=== PATIENT | female | born 1930 | race Caucasian/White ===

== ENCOUNTER 2017-01-20 17:12 | Observation (INO) | payer MEDICARE, MEDICAID ==
--- NOTE | 2017-01-20 19:01 | ER Document Report ---
ED General - General Chief Complaint: Other Stated Complaint: SOCIAL CONCERN Time Seen by Provider: 01/20/17 18:42 Notes: The patient is an 86-year-old female, past medical history dementia, hypertension, presents by EMS after her family locked her out of her house. She was supposed to move to [place] this week, but the patient said that her ride change their mind. She lives with her daughter, who locked her out of the house. Patient already has a social security assessor. Patient denies any complaints at this time other than she feels hungry. TRAVEL OUTSIDE OF THE [place] IN LAST 30 DAYS: No Past Medical History - General Information source: Patient, Emergency Med Personnel - Social History Smoking Status: Never Smoker Family History: Reviewed & Not Pertinent - Past Medical History Cardiac Medical History: Reports: Hx Hypertension Review of Systems - Review of Systems Notes: REVIEW OF SYSTEMS: CONSTITUTIONAL: -fevers, -chills EENT: -eye pain, -difficulty swallowing, -nasal congestion CARDIOVASCULAR:-chest pain, -syncope. RESPIRATORY: -cough, -SOB GASTROINTESTINAL: -abdominal pain, - nausea, -vomiting, -diarrhea GENITOURINARY: -dysuria, -hematuria MUSCULOSKELETAL: -back pain, -neck pain SKIN: -rash or skin lesions. HEMATOLOGIC: -easy bruising or bleeding. LYMPHATIC: -swollen, enlarged glands. NEUROLOGICAL: -altered mental status or loss of consciousness, -headache, - neurologic symptoms PSYCHIATRIC: -anxiety, -depression. ALL OTHER SYSTEMS REVIEWED AND NEGATIVE. Physical Exam - Notes Notes: PHYSICAL EXAMINATION: GENERAL: Well-appearing, well-nourished and in no acute distress. AAOx4. HEAD: Atraumatic, normocephalic. EYES: Pupils equal round and reactive to light, extraocular movements intact, sclera anicteric, conjunctiva are normal. ENT: nares patent, oropharynx clear without exudates. Moist mucous membranes. NECK: Normal range of motion, supple without lymphadenopathy LUNGS: Breath sounds clear to auscultation bilaterally and equal. No wheezes rales or rhonchi. HEART: Regular rate and rhythm without murmurs ABDOMEN: Soft, nontender, normoactive bowel sounds. No guarding, no rebound. No masses appreciated. EXTREMITIES: Normal range of motion, no pitting or edema. No cyanosis. NEUROLOGICAL: Cranial nerves grossly intact. Normal speech, normal gait. Normal sensory and motor exams. PSYCH: Normal mood, normal affect. SKIN: Warm, Dry, normal turgor, no rashes or lesions noted. Course - Re-evaluation Re-evalutation: 01/20/17 18:58 Pt appears well and has no complaints at this time. Blood work and UA did not show any emergent abnormalities. carpenter mate, Tania Rosas, called [employer] ([facility]) and filed a report. Delbert Redd, supply chain planner, is aware of the patient and will help create an appropriate disposition for the patient tomorrow. Her social security assessor is Irineo Ramirez ([phone] ). Will feed the patient and watch her overnight. Discharge - Discharge Clinical Impression: Social problem Condition: Stable Additional Instructions: NORMAL EXAM AND WORKUP: At this time, your examination and workup show no significant abnormality. No significant abnormal physical findings were noted. All laboratory, EKG, and imaging (x-ray, CT scans, ultrasound) studies that were ordered show no significant abnormality. Although your examination and all studies that were ordered showed no significant abnormal finding, there are no examinations and no studies that are 100% accurate. There is always the possibility that some abnormality could exist and not be detected with physical examination or within the limits and capabilities of laboratory and other studies. You should return or follow up as you were instructed on your visit today for further evaluation if your symptoms do not resolve.
[2017-01-20 20:06] LABS: ABSOLUTE LYMPHOCYTES (AUTO) 0.7 10^3/uL (0.5-4.7); ABSOLUTE MONOCYTES (AUTO) 0.7 10^3/uL (0.1-1.4); ABSOLUTE NEUT (AUTO) 7.3 10^3/uL (1.7-8.2); BASOPHILS % (AUTO) 0.4 % (0-2); HEMATOCRIT 36.5 % (36.0-47.0); HEMOGLOBIN 12.7 g/dL (12.0-15.5); HGB HCT DIFFERENCE 1.6; LYMPHOCYTES % (AUTO) 8.5 % (13-45); MEAN CORPUSCULAR HEMOGLOBIN 30.2 pg (27.0-33.4); MEAN CORPUSCULAR HGB CONC 34.7 g/dL (32.0-36.0); MEAN CORPUSCULAR VOLUME 87 fl (80-97); MONOCYTES % (AUTO) 8.3 % (3-13); RED CELL DISTRIBUTION WIDTH 14.4 % (11.5-14.0); SEGMENTED NEUTROPHILS % (AUTO) 82.8 % (42-78); WHITE BLOOD COUNT 8.9 10^3/uL (4.0-10.5)
[2017-01-20 20:20] LABS: ALANINE AMINOTRANSFERASE 24 U/L (9-52); ALKALINE PHOSPHATASE 77 U/L (38-126); ANION GAP 12 (5-19); ASPARTATE AMINO TRANSFERASE 21 U/L (14-36); BILIRUBIN,DIRECT 0.3 mg/dL (0.0-0.4); BILIRUBIN,TOTAL 0.4 mg/dL (0.2-1.3); BLOOD UREA NITROGEN 38 mg/dL (7-20); CALCIUM 9.1 mg/dL (8.4-10.2); CARBON DIOXIDE 20 mmol/L (22-30); CHLORIDE 110 mmol/L (98-107); CREATININE RESULT 1.42 mg/dL (0.52-1.25); GLUCOSE 92 mg/dL (75-110); POTASSIUM 4.5 mmol/L (3.6-5.0); SODIUM 141.6 mmol/L (137-145); TOTAL PROTEIN 6.4 g/dL (6.3-8.2)
[2017-01-21 13:07] LABS: APPEARANCE,URINE SLIGHTLY-CLOUDY; BILIRUBIN,URINE NEGATIVE (NEGATIVE); GLUCOSE, URINE NEGATIVE (NEGATIVE); KETONES,URINE NEGATIVE (NEGATIVE); LEUKOCYTE ESTERASE,URINE LARGE (NEGATIVE); NITRITE,URINE NEGATIVE (NEGATIVE); PROTEIN,URINE NEGATIVE (NEGATIVE); UROBILINOGEN,URINE NEGATIVE mg/dL (<2.0)
[2017-01-21] MEDS ORDERED: CEPHALEXIN 500 MG CAPSULE PO SCH (23:15)
--- NOTE | 2017-01-22 09:27 | ER Document Report ---
ED General - General Chief Complaint: Other Stated Complaint: SOCIAL CONCERN Time Seen by Provider: 01/20/17 18:42 TRAVEL OUTSIDE OF THE [place] IN LAST 30 DAYS: No - Related Data Allergies/Adverse Reactions: No Known Allergies Allergy (Unverified 01/20/17 18:58) Home Medications: Current Home Medications Cholestyramine (with Sugar) [Cholestyramine Packet] 1 pkg PO BID 01/21/17 [ History] Lisinopril [Lisinopril] 20 mg PO DAILY 01/21/17 [History] Past Medical History - General Information source: Patient, Emergency Med Personnel - Social History Smoking Status: Never Smoker Family History: Reviewed & Not Pertinent - Past Medical History Cardiac Medical History: Reports: Hx Hypertension Physical Exam - Vital signs Vitals: Pulse BP Pulse Ox 85 95/44 L 98 01/20/17 17:43 01/20/17 17:43 01/20/17 17:43 Course - Re-evaluation Re-evalutation: 01/22/17 09:27 [facility] I examined this patient. I reviewed the patient's chart. The patient is currently resting comfortably and requires no acute medical intervention. Disposition per psychiatry. - Vital Signs Vital signs: Temp Pulse Resp BP Pulse Ox 97.6 F 88 18 132/64 H 95 01/22/17 07:57 01/22/17 07:57 01/22/17 07:57 01/22/17 07:57 01/22/17 07:57 - Laboratory Result Diagrams: 01/20/17 19:55 01/20/17 19:55 Laboratory results interpreted by me: 01/20/17 01/20/17 01/21/17 19:55 19:55 11:10 RDW 14.4 H Seg Neutrophils % 82.8 H Lymphocytes % 8.5 L Chloride 110 H Carbon Dioxide 20 L BUN 38 H Creatinine 1.42 H Est GFR ( Amer) 42 L Est GFR (Non-Af Amer) 35 L Urine Blood SMALL H Ur Leukocyte Esterase LARGE H Discharge - Discharge Clinical Impression: Social problem Condition: Stable Additional Instructions: NORMAL EXAM AND WORKUP: At this time, your examination and workup show no significant abnormality. No significant abnormal physical findings were noted. All laboratory, EKG, and imaging (x-ray, CT scans, ultrasound) studies that were ordered show no significant abnormality. Although your examination and all studies that were ordered showed no significant abnormal finding, there are no examinations and no studies that are 100% accurate. There is always the possibility that some abnormality could exist and not be detected with physical examination or within the limits and capabilities of laboratory and other studies. You should return or follow up as you were instructed on your visit today for further evaluation if your symptoms do not resolve. Referrals: NATALIE LALA MD [Primary Care Provider] - Follow up as needed
[2017-01-22] MEDS: CEPHALEXIN 500 MG CAPSULE PO SCH ×2 (13:49→18:16)
[2017-01-23] MEDS: CEPHALEXIN 500 MG CAPSULE PO SCH ×3 (06:00→21:53)
--- NOTE | 2017-01-23 16:52 | ER Document Report ---
Doctor's Note Notes: 01/23/17 16:52 Patient was an unfortunate social situation. There may be options for a memory care unit. Patient will need to be evaluated and diagnosed with Alzheimer's/ dementia. I have placed a consult to have patient evaluated for neuropsychiatric evaluation for dementia which may help facilitate placement for her at this time. Nothing further at this time. We will continue to follow.
[2017-01-24] MEDS: CEPHALEXIN 500 MG CAPSULE PO SCH ×2 (07:30→14:12)
[2017-01-24] MEDS ORDERED: ENOXAPARIN SODIUM INJ 30 MG/0.3 ML DISP.SYRIN SUBCUT ONE (10:00)
[2017-01-24] MEDS ORDERED: TUBERCULIN,PURIF.PROT.DERIV. 5 TU/0.1 ML TEST 1 ML VIAL ID ONE (11:23)
[2017-01-24] MEDS ORDERED: HYDROXYZINE PAMOATE 25 MG CAPSULE PO ONE (11:23)
[2017-01-24] MEDS ORDERED: ACETAMINOPHEN 325 MG TABLET PO PRN (12:51)
--- NOTE | 2017-01-24 17:33 | PDOC H&P ---
History of Present Illness Admission Date/PCP: 01/24/17 13:09 NATALIE LALA MD Patient complains of: Altered mental status History of Present Illness: JASIEL STONE is a 86 year old female This is a 86-year-old female with a history of the hypertension's and osteoarthritis and history of the chronic kidney disease and a chronic diarrheaRecently a came to the office couple of months back and a Mini-Mental status exam was done was a total score was 21But other than that patients pretty much appropriate at the timesRecently her daughter and her was concerned and pretty much called the office last week and said that they cannot take care of this woman and according to the patient's they locked out her in the room and patients brought in the emergency department. Patient already of a social director working on a placement And [place] live [place] the [place] and planning to go over there In the emergency department initial workup was all stable could be underlying some mild dementia and the patient was kept in the ER for 3 days to try to placementBut still unable to get the braceThe ER physicians call to ask me admit the patient's until the placement was done Patients also have a urinary tract infections and put her on the Keflex Patient is otherwise denied any chest pain without any shortness of the breath Patient have ongoing diarrhea and currently taking the WelChol and patient recently see Dr. Concepcion and suggest to continue some medications and if is not getting better need a colonoscopy but patients and the family at the times refuses it Past Medical History Cardiac Medical History: Reports: Coronary Artery Disease, Hypertension Renal/ Medical History: Reports: Chronic Kidney Disease Musculoskeltal Medical History: Reports: Arthritis Psychiatric Medical History: Reports: Dementia Past Surgical History Past Surgical History: Reports: Appendectomy, Hysterectomy Social History Smoking Status: Never Smoker Frequency of Alcohol Use: None Hx Recreational Drug Use: No Hx Prescription Drug Abuse: No Family History Family History: Reviewed & Not Pertinent Parental Family History Reviewed: Yes Children Family History Reviewed: Yes Sibling(s) Family History Reviewed.: Yes Medication/Allergy Home Medications: Cholestyramine (with Sugar) [Cholestyramine Packet] 1 pkg PO BID 01/21/17 Lisinopril [Lisinopril] 20 mg PO DAILY 01/21/17 Allergies/Adverse Reactions: No Known Allergies Allergy (Unverified 01/20/17 18:58) Review of Systems Constitutional: ABSENT: chills, fever(s), headache(s), weight gain, weight loss Eyes: ABSENT: visual disturbances Ears: ABSENT: hearing changes Cardiovascular: ABSENT: chest pain, dyspnea on exertion, edema, orthropnea, palpitations Respiratory: ABSENT: cough, hemoptysis Gastrointestinal: ABSENT: abdominal pain, constipation, diarrhea, hematemesis, hematochezia, nausea, vomiting Genitourinary: ABSENT: dysuria, hematuria Musculoskeletal: ABSENT: joint swelling Integumentary: ABSENT: rash, wounds Neurological: ABSENT: abnormal gait, abnormal speech, confusion, dizziness, focal weakness, syncope Psychiatric: ABSENT: anxiety, depression, homidical ideation, suicidal ideation Endocrine: ABSENT: cold intolerance, heat intolerance, menstrual abnormalities, polydipsia, polyuria Hematologic/Lymphatic: ABSENT: easy bleeding, easy bruising, lymphadenopathy Physical Exam Vital Signs: Temp Pulse Resp BP Pulse Ox 97.6 F 94 17 137/76 H 95 01/24/17 11:30 01/24/17 11:30 01/24/17 11:30 01/24/17 11:30 01/24/17 11:30 General appearance: PRESENT: no acute distress, well-developed, well-nourished Head exam: PRESENT: atraumatic, normocephalic Eye exam: PRESENT: conjunctiva pink, EOMI, PERRLA. ABSENT: scleral icterus Ear exam: PRESENT: normal external ear exam Mouth exam: PRESENT: moist, tongue midline Neck exam: PRESENT: full ROM. ABSENT: carotid bruit, JVD, lymphadenopathy, thyromegaly Respiratory exam: PRESENT: clear to auscultation anjelica Cardiovascular exam: PRESENT: RRR. ABSENT: diastolic murmur, rubs, systolic murmur Pulses: PRESENT: normal dorsalis pedis pul, +2 pedal pulses bilateral Vascular exam: PRESENT: normal capillary refill GI/Abdominal exam: PRESENT: normal bowel sounds, soft. ABSENT: distended, guarding, mass, organolmegaly, rebound, tenderness Rectal exam: PRESENT: deferred Neurological exam: PRESENT: alert, awake, oriented to person. ABSENT: motor sensory deficit Psychiatric exam: PRESENT: appropriate affect, normal mood. ABSENT: homicidal ideation, suicidal ideation Skin exam: PRESENT: dry, intact, warm. ABSENT: cyanosis, rash Assessment & Plan - Diagnosis (1) Altered mental status Qualifiers: Altered mental status type: disorientation Qualified Code(s): R41.0 - Disorientation, unspecified Is this a current diagnosis for this admission?: Yes Plan: Could be underlying ongoing dementia versus recent urinary tract infectionsWe will get the CT of the head and neurology consult and check a blood work (2) Chronic diarrhea Is this a current diagnosis for this admission?: Yes Plan: Continues to cholestamine (3) Chronic kidney disease Qualifiers: Chronic kidney disease stage: stage 2 (mild) Qualified Code(s): N18.2 - Chronic kidney disease, stage 2 (mild) Is this a current diagnosis for this admission?: Yes Plan: Currently stable (4) Dementia Qualifiers: Dementia type: unspecified type Dementia behavioral disturbance: with behavioral disturbance Qualified Code(s): F03.91 - Unspecified dementia with behavioral disturbance Is this a current diagnosis for this admission?: Yes Plan: We consult the neurology we will check the vitamin B12 sed rate and may be a consider to start the Aricept (5) UTI (urinary tract infection) Qualifiers: Urinary tract infection type: acute cystitis Hematuria presence: without hematuria Qualified Code(s): N30.00 - Acute cystitis without hematuria Is this a current diagnosis for this admission?: Yes Plan: We will follow the urine culture and continues to Keflex (6) Hypertension Qualifiers: Hypertension type: essential hypertension Qualified Code(s): I10 - Essential (primary) hypertension Is this a current diagnosis for this admission?: Yes Plan: Continues to lisinopril - Time Time Spent: 30 to 50 Minutes Medications reviewed and adjusted accordingly: Yes Anticipated discharge: Other Within: Other - Inpatient Certification Medical Necessity: Need Close Monitoring Due to Risk of Patient Decompensation Post Hospital Care: D/C [employer] Operator Documentation - Plan Summary Plan Summary: Consult discharge planning for the possible placement consult the neurology and continues to monitor
[2017-01-24] MEDS ORDERED: [UNRECOGNIZED DRUG - OTHER] PO SCH (18:00)
[2017-01-24] MEDS ORDERED: CEFTRIAXONE 1 GM/D5W RTU 1 GM/50 ML RTUPB IV SCH (18:00)
[2017-01-24] MEDS ORDERED: CHOLESTYRAMINE PO SCH (18:00)
[2017-01-24] MEDS: CHOLESTYRAMINE/ASPARTAME 4 GM PACKET PO SCH (18:15)
[2017-01-24] MEDS ORDERED: CYANOCOBALAMIN (VITAMIN B-12) INJ 1000 MCG/1 ML VIAL IM ONE (18:30)
[2017-01-25 05:16] LABS: ABSOLUTE EOSINOPHILS # (AUTO) 0.2 10^3/uL (0.0-0.6); ABSOLUTE LYMPHOCYTES (AUTO) 1.3 10^3/uL (0.5-4.7); ABSOLUTE MONOCYTES (AUTO) 0.6 10^3/uL (0.1-1.4); ABSOLUTE NEUT (AUTO) 2.5 10^3/uL (1.7-8.2); BASOPHILS % (AUTO) 0.8 % (0-2); EOSINOPHILS % (AUTO) 3.8 % (0-6); HEMATOCRIT 36.8 % (36.0-47.0); HEMOGLOBIN 12.6 g/dL (12.0-15.5); LYMPHOCYTES % (AUTO) 28.5 % (13-45); MEAN CORPUSCULAR HEMOGLOBIN 29.8 pg (27.0-33.4); MEAN CORPUSCULAR HGB CONC 34.2 g/dL (32.0-36.0); MEAN CORPUSCULAR VOLUME 87 fl (80-97); RED BLOOD COUNT 4.23 10^6/uL (3.72-5.28); SEGMENTED NEUTROPHILS % (AUTO) 53.9 % (42-78); WHITE BLOOD COUNT 4.7 10^3/uL (4.0-10.5)
[2017-01-25 05:42] LABS: ANION GAP 10 (5-19); BLOOD UREA NITROGEN 24 mg/dL (7-20); CALCIUM 8.7 mg/dL (8.4-10.2); CARBON DIOXIDE 21 mmol/L (22-30); CHLORIDE 112 mmol/L (98-107); CREATININE RESULT 0.79 mg/dL (0.52-1.25); GLUCOSE 87 mg/dL (75-110); POTASSIUM 4.2 mmol/L (3.6-5.0); SODIUM 142.6 mmol/L (137-145)
[2017-01-25] MEDS ORDERED: CYANOCOBALAMIN (VITAMIN B-12) 1,000 MCG TABLET PO SCH (10:00)
[2017-01-25] MEDS ORDERED: (PENDING PHARMACY ID) (Lisinopril [Lisinopril] 20 MG) PO SCH (10:00)
[2017-01-25] MEDS: LISINOPRIL 10 MG TABLET PO SCH (11:07)
[2017-01-25] MEDS: CHOLESTYRAMINE/ASPARTAME 4 GM PACKET PO SCH ×2 (11:13→17:28)
[2017-01-25 11:49] LABS: URINE BARBITURATES SCREEN NEGATIVE; URINE METHADONE SCREEN NEGATIVE; URINE OPIATES LOW NEGATIVE; URINE PHENCYCLIDINE SCREEN NEGATIVE
[2017-01-25] MEDS: ENOXAPARIN SODIUM INJ 30 MG/0.3 ML DISP.SYRIN SUBCUT SCH (11:54)
--- NOTE | 2017-01-25 15:49 | PDOC PROGRESS REPORT ---
Subjective Progress Note for:: 01/25/17 Subjective:: Patient continue to demonstrate episodes of irrational decision but not harmful to self or others in her surrounding. She refused IV medication but amenable to oral antibiotic. She denied chest pain or difficulty with breathing. No reported fever or chills. No nausea, vomiting, or abdominal pain. Physical Exam Vital Signs: Temp Pulse Resp BP Pulse Ox 98.0 F 87 16 123/54 L 99 01/25/17 11:55 01/25/17 11:55 01/25/17 11:55 01/25/17 11:55 01/25/17 11:55 Intake & Output 01/24/17 01/25/17 01/26/17 06:59 06:59 06:59 Intake Total 1220 Output Total 1200 Balance 20 Weight 54.8 kg General appearance: PRESENT: no acute distress Head exam: PRESENT: atraumatic, normocephalic Eye exam: PRESENT: conjunctiva pink, EOMI, PERRLA. ABSENT: scleral icterus Mouth exam: PRESENT: moist Respiratory exam: PRESENT: clear to auscultation anjelica Cardiovascular exam: PRESENT: RRR. ABSENT: diastolic murmur, rubs, systolic murmur GI/Abdominal exam: PRESENT: normal bowel sounds, soft. ABSENT: distended, guarding, mass, organolmegaly, rebound, tenderness Musculoskeletal exam: PRESENT: deformity - relatd to arthritis involvement of joints. Neurological exam: PRESENT: alert, awake, oriented to person, oriented to place , oriented to time, CN II-XII grossly intact. ABSENT: oriented to situation, motor sensory deficit Psychiatric exam: PRESENT: appropriate affect, normal mood. ABSENT: homicidal ideation, suicidal ideation Skin exam: PRESENT: dry, intact, warm. ABSENT: cyanosis, rash Results Laboratory Results: 01/25/17 04:30 01/25/17 04:30 01/24/17 01/25/17 01/25/17 14:35 04:30 04:30 WBC 4.7 RBC 4.23 Hgb 12.6 Hct 36.8 MCV 87 MCH 29.8 MCHC 34.2 RDW 14.0 Plt Count 165 Seg Neutrophils % 53.9 Lymphocytes % 28.5 Monocytes % 13.0 Eosinophils % 3.8 Basophils % 0.8 Absolute Neutrophils 2.5 Absolute Lymphocytes 1.3 Absolute Monocytes 0.6 Absolute Eosinophils 0.2 Absolute Basophils 0.0 Sodium 142.6 Potassium 4.2 Chloride 112 H Carbon Dioxide 21 L Anion Gap 10 BUN 24 H Creatinine 0.79 Est GFR ( Amer) > 60 Est GFR (Non-Af Amer) > 60 Glucose 87 Calcium 8.7 Vitamin B12 218.0 L Assessment & Plan - Diagnosis (1) Senile dementia with behavioral disturbance Is this a current diagnosis for this admission?: Yes Plan: Follow up on competency evaluation. In view of her advance age patient may demonstrate recent memory impairment suggestive of dementia of senility. Other contributory factors include MILADIS due to dehydration and ongoing infection. (2) Chronic kidney disease Qualifiers: Chronic kidney disease stage: stage 2 (mild) Qualified Code(s): N18.2 - Chronic kidney disease, stage 2 (mild) Is this a current diagnosis for this admission?: Yes Plan: Resolved and probably due to poor oral fluid intake. (3) Hypertension Qualifiers: Hypertension type: essential hypertension Qualified Code(s): I10 - Essential (primary) hypertension Is this a current diagnosis for this admission?: Yes Plan: See covering attending physician orders. (4) UTI (urinary tract infection) Qualifiers: Urinary tract infection type: acute cystitis Hematuria presence: without hematuria Qualified Code(s): N30.00 - Acute cystitis without hematuria Is this a current diagnosis for this admission?: Yes Plan: D/C Rocephin. Start on Augmentin 500/125 mg 1 tablet p.o bid. Follow up on urine culture findings. - Time Time Spent with patient: 25-34 minutes Medications reviewed and adjusted accordingly: Yes Anticipated discharge: Other Within: Other - Inpatient Certification Based on my medical assessment, after consideration of the patient's comorbidities, presenting symptoms, or acuity I expect that the services needed warrant INPATIENT care.: Yes I certify that my determination is in accordance with my understanding of Medicare's requirements for reasonable and necessary INPATIENT services [42 CFR 412.3e].: Yes Medical Necessity: Need Close Monitoring Due to Risk of Patient Decompensation, Risk of Complication if Not Cared For in Hospital Post Hospital Care: D/C or Transfer Summary - Plan Summary Plan Summary: See covering attending physician orders.
[2017-01-25] MEDS: AMOXICILLIN TR/POT CLAVULANATE 500-125 MG TAB PO SCH (17:27)
[2017-01-25] MEDS: CYANOCOBALAMIN/FA/PYRIDOXINE TABLET PO SCH (17:27)
--- NOTE | 2017-01-25 21:18 | PSYCHOLOGICAL NOTE ---
Psych Note - Psych Note Psych Note: Note: This is a Capacity Evaluation Patient is an 86-year-old female who presented to the [facility] ( [facility]) emergency department (ED) on 01/20/2017 via EMS after family locked her out of their home and Altered Mental Status (AMS) was noted. She was subsequently admitted for AMS, chronic diarrhea, chronic kidney disease, dementia, urinary tract infection (UTI), and hypertension (HTN). She was seen by her primary care provider (PCP), Dr. Davila, as well as a Neurologist, Dr. Walls, while in the ED for consultation. Patients medical insurance is Medicaid and Medicare. Patient resides in a private residence with her daughter and son-in-law who locked her out of their home. Adult Protective Services (APS ) was already involved with patient. Review of chart revealed Patients medical history is positive for HTN, osteoarthritis, chronic kidney disease, and chronic diarrhea. She has had an appendectomy and hysterectomy. Home medications include cholestyramine (with sugar) and Lisinopril. While in the hospital she has been administered 7 medications with one being an antibiotic due to UTI. She has refused medical procedures such as chest x-ray, Head CT, and IV for antibiotics. She was open to by mouth (PO) medication so attending hospitalist changed the orders. She has been seeing Dr. Concepcion who has recommended a colonoscopy if the prescribed WelChol does not help with the diarrhea. Both patient and her family have refused the colonoscopy. She has been seen one other time at [facility] on 03/29/[address] Davila for ankle brachial index (STELLA) due to peripheral arterial disease (PAD). Per history and physical (H & P) Patient was seen at Dr. Paris office a couple months back and a Mini Mental Status was completed with a score of 21. Then last week daughter and son-in-law contacted Dr. Paris office concerned about patient and their ability to care for her. [facility] ED forensic social worker/maintenance planner has been coordinating with APS worker, Irineo Ramirez. A capacity evaluation was requested by PCP due to concerns patients AMS is due to dementia thus causing alarm for patients ability to care for self. The role of a capacity evaluation is to assess and measure a Patients abstract/ rational level of thinking, executive functioning/planning/sequencing, executive functioning/switching, attention, orientation, safety/problem solving , memory, ability to complete daily living activities, and safety awareness. During the capacity evaluation patient presented calm and cooperative. She answered questions when addressed. She remained lying in bed. She was alert and oriented to person, place, time, and circumstance. Mood was euthymic with congruent affect. Patient denied suicidal and homicidal ideation and these were not presenting concerns. She did not appear to be responding to internal stimuli as evidenced by fair eye contact, answering questions with appropriate responses, staying on topic, and carrying on dialogue conversation. Thought processes were linear, logical, organized, and concrete. Conversational speech was within normal limits (WNL) for rate, tone and prosody. Intellectual abilities were estimated within the average range. Insight, judgment, and impulse control were fair as evidenced by her cognitive capabilities, interaction skills and appropriate reasoning. She expressed she did not feel safe in the hospital but couldnt explain why and asked about being discharged today. Patient correctly answered 9 of 11 orientation questions. She incorrectly answered todays date with I cant keep up anymore and dont have a Calendar. When prompted she stated the 10th or 12th. She knew she had been at the hospital since Friday. She also incorrectly answered the last 3 presidents with there was Yus[place], [place] and [place]. Patient incorrectly answered 3 of 3 higher cortical abstract reasoning questions in which Patient is required to describe how two items are similar. These results suggested grossly intact concrete thinking abilities thus likely lacks the capacity to employ skills necessary to navigate the nuances of conversation and activities. Patients memory was fair as evidenced by repeating the name of 3-common objects after examiner instruction, and then getting 2 of the 3 words after 1 minute delay, and after 5 minute delay. She accurately spelled the word world forward. She inaccurately spelled it backwards with L no [id number]. Patients problem solving for questions regarding personal safety or the safety of others was good given she had 100% accuracy. She stated she would turn off the water if she came home and found her bathroom flooding. She stated she would call the Fire Department if she saw smoke coming from her neighbors house. The Patient was administered the Clock Drawing Test, a standardized and peer reviewed measure of dementia. She was given instructions to draw the face of a clock with all its numbers and place the hands at 10 minutes before 11. She waited until verbal instructions were completed before starting. She bharat a small te-moak just left bottom of center. She started numbering with 12 then went counter clockwise. Her numbering was large especially in comparison to the small te-moak size. She recognized what she was doing was not going to work. She bharat a second te-moak slightly larger in size just below the first. She started numbering with 12, then 6, then 5-1, then 11-8, and she left out 7 though there was a space for it. Numbers were not equally spaced. She asked for confirmation of hand placement, which she stated was correct, however hand placement was difficult to read. As such, the Patient showed fair organizational and sequencing abilities, and poor spacial awareness with the clock drawing task, with a failing score. In terms of her ability to complete tasks of everyday living (e.g., mobility, bathing, cooking, grocery shopping, taking medications appropriately, etc.), Patient said she could stand and walk but required a cane. She stated she could dress herself. She reported she could bathe or shower herself. She was able to manipulate a pen for the clock drawing and can likely do the same with eating utensils. She stated she has a valid drivers license and drives, however gave up her vehicle to help out her daughter and son-in-law financially. She said her and her daughter prepare, plan, and obtain food for meals. Patient knew she took a blood pressure medication and a powder for her diarrhea. She said she was receiving an antibiotic in the hospital due to what showed up in her urine. Impression: The Patient is an 86-year-old female who previously resided in [place], [place], however in [id number] her home was foreclosed. She had been residing with her daughter and son-in-law until prior to ED arrival when they locked her out of the home. Her PCP, Dr. Davila reported a 21 on a Mini Mental Status exam conducted at his office a couple months back. The daughter and son-in-law had called Dr. Paris office a week ago with concerns for patient and their ability to care for her. She has minimal medical history for her age and had only been on 2 home medications. There is no history of cigarette, alcohol, or other drug use. She maintained she can go back to the home In [place], [place]. When confronted about that not being an option she stated the lady that resided with her only paid the property taxes, patient owned the home, and Malcolm Scanlon got their information wrong. She identified Assisted Living Would be a last resort for her. Overall, results of the current evaluation revealed good orientation to present and recent items of knowledge, concrete thinking patterns, fair memory, good sequencing, good organizational abilities, good safety and problem solving, and an ability to complete own ADLs though she does require a cane and wears eye glasses. She has refused medical treatments, however when this clinician suggested she reconsider doing a Head CT she stated when she follows up with her doctor in [place] she will go if they refer her. Also she was perfectly fine with taking her antibiotic by mouth versus IV. The patients insight, judgment, and impulse control were fair as evidenced by her cognitive capabilities, interaction skills and appropriate reasoning, as well as at a baseline where she can safely navigate her environment or make decisions that are in her best interest. It is with a reasonable degree of medical and clinical certainty, the Patient would benefit from a responsible and reliable Medical Power of Paint Process Engineer. At some point she may need a payee to aid in managing finances, as well as In-Home Health at the very least to assist with every day needs. Patient was complaint and engaged in the capacity screening. The attending hospitalist was okay with administering patient by mouth antibiotics for her UTI verse via IV. She plans to follow up with a PCP and stated she would do whatever they recommended. This compliance with treatments and recommendations indicated fair abilities to take care of self at home, not make self vulnerable, and not put self into immediate danger. The following diagnoses are offered: DIAGNOSES: 1. 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 Urinary Tract Infection 3. Chronic Kidney Disease 4. Hypertension RECOMMENDATIONS: 1. A responsible and reliable Medical Power of Paint Process Engineer to aid in medical decision making. 2. Psychiatric consultation with a provider is recommended to rule out any change in life cycle issues. 3. Head CT to identify neurodegeneration and for further neurocognitive diagnosing. 4. Neurological follow up with a provider is recommended for further brain scans and neurocognitive diagnosing. 5. Driving assessment. 6. Patient would benefit from In-Home Health where she can maintain independence while ensuring basic needs are being met. Consulted with Dr. Womack regarding this capacity evaluation and she is in agreement with the findings and recommendations.
[2017-01-26 06:31] LABS: ABSOLUTE EOSINOPHILS # (AUTO) 0.2 10^3/uL (0.0-0.6); ABSOLUTE LYMPHOCYTES (AUTO) 1.4 10^3/uL (0.5-4.7); ABSOLUTE MONOCYTES (AUTO) 0.6 10^3/uL (0.1-1.4); ABSOLUTE NEUT (AUTO) 2.5 10^3/uL (1.7-8.2); BASOPHILS % (AUTO) 0.7 % (0-2); EOSINOPHILS % (AUTO) 4.1 % (0-6); HEMATOCRIT 36.4 % (36.0-47.0); HEMOGLOBIN 12.2 g/dL (12.0-15.5); HGB HCT DIFFERENCE 0.2; MEAN CORPUSCULAR HEMOGLOBIN 29.6 pg (27.0-33.4); MEAN CORPUSCULAR HGB CONC 33.6 g/dL (32.0-36.0); MEAN CORPUSCULAR VOLUME 88 fl (80-97); MONOCYTES % (AUTO) 12.3 % (3-13); RED BLOOD COUNT 4.14 10^6/uL (3.72-5.28); RED CELL DISTRIBUTION WIDTH 14.5 % (11.5-14.0); SEGMENTED NEUTROPHILS % (AUTO) 53.9 % (42-78); WHITE BLOOD COUNT 4.7 10^3/uL (4.0-10.5)
[2017-01-26 06:47] LABS: ANION GAP 9 (5-19); BLOOD UREA NITROGEN 23 mg/dL (7-20); CALCIUM 8.9 mg/dL (8.4-10.2); CARBON DIOXIDE 24 mmol/L (22-30); CHLORIDE 110 mmol/L (98-107); CREATININE RESULT 0.92 mg/dL (0.52-1.25); GLUCOSE 85 mg/dL (75-110); POTASSIUM 4.2 mmol/L (3.6-5.0); SODIUM 143.3 mmol/L (137-145)
[2017-01-26] MEDS: AMOXICILLIN TR/POT CLAVULANATE 500-125 MG TAB PO SCH ×3 (08:45→17:25)
[2017-01-26] MEDS: ENOXAPARIN SODIUM INJ 30 MG/0.3 ML DISP.SYRIN SUBCUT SCH (08:46)
[2017-01-26] MEDS: CHOLESTYRAMINE/ASPARTAME 4 GM PACKET PO SCH ×2 (09:52→17:26)
[2017-01-26] MEDS: LISINOPRIL 10 MG TABLET PO SCH (12:38)
--- NOTE | 2017-01-26 15:14 | PDOC PROGRESS REPORT ---
Subjective Progress Note for:: 01/26/17 Subjective:: She denied chest pain or difficulty with breathing. No reported fever or chills. No nausea, vomiting, or abdominal pain. She expressed concern about going home. Psychologist assessment and recommendation noted. Physical Exam Vital Signs: Temp Pulse Resp BP Pulse Ox 97.5 F 78 13 106/43 L 100 01/26/17 12:00 01/26/17 12:00 01/26/17 12:00 01/26/17 12:00 01/26/17 12:00 Intake & Output 01/25/17 01/26/17 01/27/17 06:59 06:59 06:59 Intake Total 1220 1320 2608 Output Total 1200 1450 Balance 20 -130 2608 Weight 54.8 kg 54.8 kg Physical Exam: General appearance: PRESENT: no acute distress Head exam: PRESENT: atraumatic, normocephalic Eye exam: PRESENT: conjunctiva pink, EOMI, PERRLA. ABSENT: scleral icterus Mouth exam: PRESENT: moist Respiratory exam: PRESENT: clear to auscultation anjelica Cardiovascular exam: PRESENT: RRR. ABSENT: diastolic murmur, rubs, systolic murmur GI/Abdominal exam: PRESENT: normal bowel sounds, soft. ABSENT: distended, guarding, mass, organomegaly, rebound, tenderness Musculoskeletal exam: PRESENT: deformity - related to arthritis involvement of joints. Neurological exam: PRESENT: alert, awake, oriented to person, oriented to place , oriented to time, CN II-XII grossly intact. ABSENT: oriented to situation, motor sensory deficit Psychiatric exam: PRESENT: appropriate affect, normal mood. ABSENT: homicidal ideation, suicidal ideation Skin exam: PRESENT: dry, intact, warm. ABSENT: cyanosis, rash Results Laboratory Results: 01/26/17 05:44 01/26/17 05:44 01/26/17 01/26/17 05:44 05:44 WBC 4.7 RBC 4.14 Hgb 12.2 Hct 36.4 MCV 88 MCH 29.6 MCHC 33.6 RDW 14.5 H Plt Count 168 Seg Neutrophils % 53.9 Lymphocytes % 29.0 Monocytes % 12.3 Eosinophils % 4.1 Basophils % 0.7 Absolute Neutrophils 2.5 Absolute Lymphocytes 1.4 Absolute Monocytes 0.6 Absolute Eosinophils 0.2 Absolute Basophils 0.0 Sodium 143.3 Potassium 4.2 Chloride 110 H Carbon Dioxide 24 Anion Gap 9 BUN 23 H Creatinine 0.92 Est GFR ( Amer) > 60 Est GFR (Non-Af Amer) 58 L Glucose 85 Calcium 8.9 Assessment & Plan - Diagnosis (1) Senile dementia with behavioral disturbance Is this a current diagnosis for this admission?: Yes (2) Chronic kidney disease Qualifiers: Chronic kidney disease stage: stage 2 (mild) Qualified Code(s): N18.2 - Chronic kidney disease, stage 2 (mild) Is this a current diagnosis for this admission?: Yes (3) Hypertension Qualifiers: Hypertension type: essential hypertension Qualified Code(s): I10 - Essential (primary) hypertension Is this a current diagnosis for this admission?: Yes (4) UTI (urinary tract infection) Qualifiers: Urinary tract infection type: acute cystitis Hematuria presence: without hematuria Qualified Code(s): N30.00 - Acute cystitis without hematuria Is this a current diagnosis for this admission?: Yes - Time Time Spent with patient: 25-34 minutes Medications reviewed and adjusted accordingly: Yes Anticipated discharge: SNF - or [facility] placement - Inpatient Certification Based on my medical assessment, after consideration of the patient's comorbidities, presenting symptoms, or acuity I expect that the services needed warrant INPATIENT care.: Yes I certify that my determination is in accordance with my understanding of Medicare's requirements for reasonable and necessary INPATIENT services [42 CFR 412.3e].: Yes Medical Necessity: Need Close Monitoring Due to Risk of Patient Decompensation, Need For Continuous Telemetry Monitoring, Risk of Complication if Not Cared For in Hospital Post Hospital Care: D/C or Transfer Summary - Plan Summary Plan Summary: Continue current medication and support management. Efforts at placement in progress.
[2017-01-26] MEDS: CYANOCOBALAMIN/FA/PYRIDOXINE TABLET PO SCH (17:25)
[2017-01-27 05:22] LABS: ABSOLUTE EOSINOPHILS # (AUTO) 0.2 10^3/uL (0.0-0.6); ABSOLUTE LYMPHOCYTES (AUTO) 1.5 10^3/uL (0.5-4.7); ABSOLUTE MONOCYTES (AUTO) 0.7 10^3/uL (0.1-1.4); BASOPHILS % (AUTO) 0.7 % (0-2); EOSINOPHILS % (AUTO) 3.5 % (0-6); HEMOGLOBIN 12.2 g/dL (12.0-15.5); HGB HCT DIFFERENCE 0.6; LYMPHOCYTES % (AUTO) 28.3 % (13-45); MEAN CORPUSCULAR HEMOGLOBIN 29.6 pg (27.0-33.4); MEAN CORPUSCULAR HGB CONC 33.8 g/dL (32.0-36.0); MEAN CORPUSCULAR VOLUME 88 fl (80-97); MONOCYTES % (AUTO) 12.2 % (3-13); RED BLOOD COUNT 4.11 10^6/uL (3.72-5.28); RED CELL DISTRIBUTION WIDTH 14.3 % (11.5-14.0); SEGMENTED NEUTROPHILS % (AUTO) 55.3 % (42-78); WHITE BLOOD COUNT 5.4 10^3/uL (4.0-10.5)
[2017-01-27 05:35] LABS: ANION GAP 9 (5-19); BLOOD UREA NITROGEN 30 mg/dL (7-20); CALCIUM 8.9 mg/dL (8.4-10.2); CARBON DIOXIDE 22 mmol/L (22-30); CHLORIDE 111 mmol/L (98-107); CREATININE RESULT 0.98 mg/dL (0.52-1.25); GLUCOSE 86 mg/dL (75-110); POTASSIUM 5.1 mmol/L (3.6-5.0); SODIUM 142.2 mmol/L (137-145)
[2017-01-27] MEDS: ENOXAPARIN SODIUM INJ 30 MG/0.3 ML DISP.SYRIN SUBCUT SCH (08:37)
[2017-01-27] MEDS: AMOXICILLIN TR/POT CLAVULANATE 500-125 MG TAB PO SCH ×3 (08:37→17:53)
[2017-01-27] MEDS: CHOLESTYRAMINE/ASPARTAME 4 GM PACKET PO SCH ×2 (09:19→17:53)
[2017-01-27] MEDS: LISINOPRIL 10 MG TABLET PO SCH (13:48)
--- NOTE | 2017-01-27 14:03 | PDOC TRANSFER SUMMARY ---
General - Admit/Disc Date/PCP Admission Date/Primary Care Provider: 01/24/17 13:09 NATALIE LALA MD Discharge Date: 01/27/17 - Discharge Diagnosis (1) Altered mental status Is this a current diagnosis for this admission?: Yes Summary: Some mild cognitive impairment and some possible UTI (2) Chronic diarrhea Is this a current diagnosis for this admission?: Yes Summary: Patient is currently taking the WelChol (3) Chronic kidney disease Is this a current diagnosis for this admission?: Yes Summary: Currently stableLow potassium diet (4) Dementia Is this a current diagnosis for this admission?: Yes Summary: Neurology neurology consult was done and suggest most likely scenario related dementia which is very mild cognitive impairment but patients make a decision by herself (5) UTI (urinary tract infection) Is this a current diagnosis for this admission?: Yes Summary: Urine culture is all negative (6) Hypertension Is this a current diagnosis for this admission?: Yes Summary: Currently all stable - Additional Information Resuscitation Status: Full Code Discharge Activity: Activity As Tolerated Home Medications: Cholestyramine (with Sugar) [Cholestyramine Packet] 1 pkg PO BID 01/21/17 Lisinopril 20 mg PO DAILY 01/21/17 History of Present Illness Admission Date/PCP: 01/24/17 13:09 NATALIE LALA MD History of Present Illness: JASIEL STONE is a 86 year old female This is a 86-year-old female with a history of the hypertension's and osteoarthritis and history of the chronic kidney disease and a chronic diarrheaRecently a came to the office couple of months back and a Mini-Mental status exam was done was a total score was 21But other than that patients pretty much appropriate at the timesRecently her daughter and her was concerned and pretty much called the office last week and said that they cannot take care of this woman and according to the patient's they locked out her in the room and patients brought in the emergency department. Patient already of a social science professor working on a placement [place] and planning to go over there In the emergency department initial workup was all stable could be underlying some mild dementia and the patient was kept in the ER for 3 days to try to placementBut still unable to get the braceThe ER physicians call to ask me admit the patient's until the placement was done Patients also have a urinary tract infections and put her on the Keflex Patient is otherwise denied any chest pain without any shortness of the breath Patient have ongoing diarrhea and currently taking the WelChol and patient recently see Dr. Concepcion and suggest to continue some medications and if is not getting better need a colonoscopy but patients and the family at the times refuses it Hospital Course Hospital Course: This 86-year-old female patient came to the emergency department because of the family situations and unable to take care of for herself Patients have a recently Mini-Mental status exam was done was 21 other than that patient was some mild cognitive impairment and may be a gestational related dementia but nothing in the bad Patient is to make a decision by herself and patient seen by neurology in the hospital and agreeWith the same Patient's other medical problem was all stable Patients wants to go home but with the age and the medical situations in the home situations patient's discharge to the nursing facility Physical Exam Vital Signs: Temp Pulse Resp BP Pulse Ox 97.4 F 71 20 128/58 H 100 01/27/17 12:04 01/27/17 12:04 01/27/17 12:04 01/27/17 12:04 01/27/17 12:04 Intake & Output 01/26/17 01/27/17 01/28/17 06:59 06:59 06:59 Intake Total 1320 3392 Output Total 1450 Balance -130 3392 Weight 54.8 kg 56 kg General appearance: PRESENT: no acute distress, well-developed, well-nourished Head exam: PRESENT: atraumatic, normocephalic Eye exam: PRESENT: conjunctiva pink, EOMI, PERRLA. ABSENT: scleral icterus Ear exam: PRESENT: normal external ear exam Mouth exam: PRESENT: moist, tongue midline Neck exam: ABSENT: carotid bruit, JVD, lymphadenopathy, thyromegaly Respiratory exam: PRESENT: clear to auscultation anjeliac. ABSENT: rales, rhonchi, wheezes Cardiovascular exam: PRESENT: RRR. ABSENT: diastolic murmur, rubs, systolic murmur Pulses: PRESENT: normal dorsalis pedis pul Vascular exam: PRESENT: normal capillary refill GI/Abdominal exam: PRESENT: normal bowel sounds, soft. ABSENT: distended, guarding, mass, organolmegaly, rebound, tenderness Rectal exam: PRESENT: deferred Extremities exam: PRESENT: full ROM. ABSENT: calf tenderness, clubbing, pedal edema Neurological exam: PRESENT: alert, awake, oriented to person, oriented to place , oriented to time, oriented to situation, CN II-XII grossly intact. ABSENT: motor sensory deficit Psychiatric exam: PRESENT: appropriate affect, normal mood. ABSENT: homicidal ideation, suicidal ideation Skin exam: PRESENT: dry, intact, warm. ABSENT: cyanosis, rash Results Laboratory Results: 01/27/17 04:35 01/27/17 04:35 01/27/17 01/27/17 04:35 04:35 WBC 5.4 RBC 4.11 Hgb 12.2 Hct 36.0 MCV 88 MCH 29.6 MCHC 33.8 RDW 14.3 H Plt Count 167 Seg Neutrophils % 55.3 Lymphocytes % 28.3 Monocytes % 12.2 Eosinophils % 3.5 Basophils % 0.7 Absolute Neutrophils 3.0 Absolute Lymphocytes 1.5 Absolute Monocytes 0.7 Absolute Eosinophils 0.2 Absolute Basophils 0.0 Sodium 142.2 Potassium 5.1 H Chloride 111 H Carbon Dioxide 22 Anion Gap 9 BUN 30 H Creatinine 0.98 Est GFR ( Amer) > 60 Est GFR (Non-Af Amer) 54 L Glucose 86 Calcium 8.9 01/25/17 10:45 Clean Catch Midstream Urine Culture - Final NO GROWTH 2 DAYS Transfer Plan - Time Spent with Patient Time spent with patient: Greater than 30 Minutes Plan Time Spent: Greater than 30 Minutes - Discharge to the nursing facility
[2017-01-27 17:33] VITALS: BP 109/55
[2017-01-27] MEDS: CYANOCOBALAMIN/FA/PYRIDOXINE TABLET PO SCH (17:53)
== END 2017-01-27 20:28 | disposition short-term general hospital (02) ==
LOC: ER 17:12 → EH 01-24 13:09 → INTOOBSV 01-24 13:09 → 4S 01-24 14:56
PROVIDERS: ADMIT Family Medicine; ATTEND Family Medicine
DX: Z60.9 Problem related to social environment, unspecified (principal); I10 Essential (primary) hypertension; F03.90 Unspecified dementia, unspecified severity, without behavioral disturbance, psychotic disturbance, mood disturbance, and anxiety
CPT/HCPCS: 36415 ×5; 87086; 82607; 85025 ×4; 85652; 80048 ×3; 80053; 81001; 80307; A9270 ×13; J3490 ×4